=== PATIENT | female | born 1940 | race Two or more races ===

== ENCOUNTER 2024-09-26 09:28 | Inpatient (IN) | payer OTHER ==
[~2024-09-26] VITALS: Ht 157.5 cm; Wt 61.2 kg
[2024-09-26] MEDS ORDERED: TOPROL XL50 M1 (10:12)
[2024-09-26] MEDS ORDERED: AMLODIPINE-OLM1 EACH (10:13)
[2024-09-26] MEDS ORDERED: DAFLONEX-XL 11300 MG (10:14)
[2024-09-26] MEDS ORDERED: METFORMIN HCL500 M3 (10:14)
[2024-09-26] MEDS ORDERED: ADULT LOW DOSE81 M1 (10:14)
[2024-09-26] MEDS ORDERED: MORPHINE SULFATE 2 MG/ML CARTRIDGE IV ONE (12:45)
[2024-09-26 13:17] LABS: HEMATOCRIT 38.4 % (36.0-45.00); HEMOGLOBIN 12.7 g/dL (12.0-15.00); MEAN CELL VOLUME 86.3 fL (80.00-100.00); MEAN CORPUSCULAR HEMOGLOBIN 28.5 pg (27.00-32.0); PLATELET COUNT 205 K/uL (150-450); RED BLOOD COUNT 4.45 M/uL (4.00-6.00); RED CELL DISTRIBUTION WIDTH 14.2 % (11.5-14.5)
[2024-09-26 13:43] LABS: PH,URINE 6.5 (5.0-8.0); URINE APPEARANCE Turbid; URINE BILIRRUBIN Negative (NEGATIVE); URINE BLOOD Large; URINE COLOR Dark Yellow; URINE GLUCOSE Negative (NEGATIVE); URINE KETONE Negative (NEGATIVE); URINE LEUKOCYTE Large; URINE NITRATE Positive
[2024-09-26 13:46] LABS: URINE CAST 4.27 uL (0.0-1.40); URINE EPITHELIAL CELLS 18.2 uL (0.0-38.8); URINE RBC 458.5 uL (0.0-20.8)
[2024-09-26 13:58] LABS: URINE BACTERIA > 9821.5 uL (0.0-1933); URINE PROTEIN 100 (NEGATIVE)
[2024-09-26 13:59] LABS: URINE MUCUS MODERATE
[2024-09-26 14:00] LABS: COVID-19 AG NEGATIVE (NEGATIVE)
[2024-09-26] MEDS ORDERED: ACETAMINOPHEN 500 MG GEL..CAP PO ONE ×2 (14:00→14:12)
[2024-09-26 14:03] LABS: INFLUENZA A AG NEGATIVE (NEGATIVE)
[2024-09-26 14:37] LABS: ALBUMIN 3.4 gm/dL (3.4-5.0); BILIRUBIN TOTAL 1.09 mg/dL (0.3-1.2); CALCIUM 9.8 mg/dL (8.5-10.1); CREATININE SERUM 0.87 mg/dL (0.55-1.02); GFR 62.18; GLOBULINA 4.2 G/DL (2.4-3.5); POTASSIUM 4.19 mEq/L (3.5-5.1); TOTAL PROTEIN 7.6 gm/dL (6.4-8.2)
[2024-09-26] MEDS ORDERED: CEFTRIAXONE SODIUM 1,000 MG VIAL IV ONE (16:45)
[2024-09-26] MEDS ORDERED: CEFTRIAXONE SODIUM 1,000 MG VIAL ONE (17:33)
[2024-09-26] MEDS ORDERED: CEFEPIME HCL 2,000 MG in 0.9 % SODIUM CHLORIDE 100 ML IV SCH (18:04)
[2024-09-26] MEDS ORDERED: ACETAMINOPHEN 325 MG TABLET PO PRN (18:15)
[2024-09-26] MEDS ORDERED: 0.9 % SODIUM CHLORIDE 1,000 ML IV SCH (18:15)
[2024-09-26] MEDS ORDERED: MORPHINE SULFATE 2 MG/ML CARTRIDGE IV PRN (18:15)
[2024-09-26] MEDS ORDERED: INSULIN LISPRO 1,000 UNIT/10 ML UNITS SUBCUTANEO PRN ×2 (18:15→20:00)
[2024-09-26] MEDS ORDERED: DEXTROSE 50 % IN WATER 0.5 G/ML DISP.SYRIN IV PRN (18:15)
[2024-09-26] MEDS ORDERED: METOPROLOL TARTRATE 50 MG TABLET PO SCH (18:17)
[2024-09-26] MEDS ORDERED: ASPIRIN 81 MG TABLET.EC PO SCH (18:18)
[2024-09-26] MEDS ORDERED: AMLODIPINE BESYLATE 2.5 MG TABLET PO SCH (18:18)
[2024-09-26] MEDS ORDERED: SERTRALINE HCL 25 MG TABLET PO SCH (18:18)
[2024-09-26] MEDS ORDERED: CEFEPIME HCL 2,000 MG VIAL ONE (18:52)
[2024-09-26] MEDS ORDERED: TAMSULOSIN HCL 0.4 MG CAP PO SCH (19:53)
[2024-09-26] MEDS ORDERED: DEXTROSE 50 % IN WATER 0.5 G/ML VIAL IV PRN (20:00)
[2024-09-26] MEDS ORDERED: MEPERIDINE HCL/PF 25 MG/ML VIAL IV PRN (20:00)
[2024-09-26 20:07] VITALS: BP 90/60; O2SAT 97
[2024-09-26] MEDS ORDERED: TAMSULOSIN HCL 0.4 MG CAP PO ONE (20:13)
[2024-09-26 21:43] VITALS: BP 162/82; O2SAT 87
[2024-09-26] MEDS ORDERED: ONDANSETRON HCL 2 MG/ML VIAL IV PRN (21:45)
[2024-09-27 03:16] VITALS: BP 125/71; O2SAT 97
[2024-09-27 08:33] LABS: ALBUMIN 2.9 gm/dL (3.4-5.0); BILIRUBIN TOTAL 0.73 mg/dL (0.3-1.2); CREATININE SERUM 0.74 mg/dL (0.55-1.02); GFR 74.95; GLOBULINA 3.7 G/DL (2.4-3.5); POTASSIUM 4.34 mEq/L (3.5-5.1); TOTAL PROTEIN 6.6 gm/dL (6.4-8.2)
[2024-09-27 08:55] VITALS: BP 153/61; O2SAT 97
[2024-09-27] MEDS ORDERED: FAMOtidine 20 MG TABLET PO SCH (09:00)
[2024-09-27] MEDS ORDERED: ENOXAPARIN SODIUM 40 MG/0.4 ML SYRINGE SUBCUTANEO SCH (09:00)
[2024-09-27 14:20] LABS: ABG PH 7.468 (7.35-7.45); ABG pCO2 29.4 mmHg (35-45); BASE EXCESS -1.5 mmol/l; BICARBONATE 20.9 mmol/l (23-25); SaO2 95.4 %; Tco2 21.8 mmol/l
[2024-09-27 14:29] LABS: allen test SATISFACTORY; mode ROOM AIR; o2 21 %; puncture site RADIAL RIGHT
[2024-09-27 16:46] VITALS: BP 122/59
[2024-09-27] MEDS ORDERED: DOCUSATE SODIUM 100MG CAP PO SCH (17:00)
[2024-09-27] MEDS ORDERED: VALSARTAN 160 MG PO SCH (17:00)
[2024-09-28 03:26] VITALS: BP 102/50; O2SAT 93
[2024-09-28 08:10] VITALS: BP 111/52
[2024-09-28] MEDS ORDERED: GABAPENTIN 400 MG CAPSULE PO SCH (09:00)
[2024-09-28] MEDS ORDERED: HYDROCORTISONE 2.5% 30 GM TUBE TOP SCH (17:04)
[2024-09-28 17:57] VITALS: BP 114/57; O2SAT 100
[2024-09-28] MEDS ORDERED: CIPROFLOXACIN IN 5 % DEXTROSE 400 MG/200 ML PIGGYBAG IV SCH (21:00)
[2024-09-29] VITALS: BP 128/63; O2SAT 96
[2024-09-29 08:58] VITALS: BP 146/65; O2SAT 98
[2024-09-29 20:26] VITALS: BP 141/63
[2024-09-30 00:59] VITALS: BP 146/72; O2SAT 95
[2024-09-30 05:05] LABS: HEMATOCRIT 35.2 % (36.0-45.00); HEMOGLOBIN 11.9 g/dL (12.0-15.00); MEAN CELL VOLUME 84.3 fL (80.00-100.00); MEAN CORPUSCULAR HEMOGLOBIN 28.5 pg (27.00-32.0); MEAN CORPUSCULAR HGB CONC 33.8 g/dl (32.0-36.0); PLATELET COUNT 242 K/uL (150-450); RED BLOOD COUNT 4.17 M/uL (4.00-6.00); RED CELL DISTRIBUTION WIDTH 14.6 % (11.5-14.5)
[2024-09-30 05:26] LABS: ALBUMIN 2.3 gm/dL (3.4-5.0); BILIRUBIN TOTAL 0.26 mg/dL (0.3-1.2); CALCIUM 8.8 mg/dL (8.5-10.1); CREATININE SERUM 0.5 mg/dL (0.55-1.02); GFR 117.83; GLOBULINA 3.4 G/DL (2.4-3.5); MAGNESIUM 1.7 mg/dL (1.8-2.4); PHOSPHOROUS 3.1 mg/dL (2.5-4.9); POTASSIUM 4.04 mEq/L (3.5-5.1); TOTAL PROTEIN 5.7 gm/dL (6.4-8.2)
[2024-09-30 05:35] LABS: C-REACTIVE PROTEIN 5.05 MG/DL (0.00-0.29)
[2024-09-30 08:00] VITALS: BP 135/68; O2SAT 96
[2024-09-30 09:54] LABS: URINE APPEARANCE Clear; URINE BILIRRUBIN Negative (NEGATIVE); URINE BLOOD Moderate; URINE COLOR Yellow; URINE GLUCOSE Negative (NEGATIVE); URINE KETONE Negative (NEGATIVE); URINE LEUKOCYTE Small; URINE NITRATE Negative; URINE PROTEIN Negative (NEGATIVE); URINE UROBILINOGEN 0.2 E.U./dl
[2024-09-30 09:58] LABS: URINE EPITHELIAL CELLS 5.8 uL (0.0-38.8); URINE RBC 116.3 uL (0.0-20.8); URINE WBC 18.6 uL (0.0-23.2)
[2024-09-30 10:00] LABS: URINE CAST 0.14 uL (0.0-1.40)
[2024-09-30 18:05] VITALS: BP 153/71; O2SAT 96
[2024-10-01 02:50] VITALS: BP 147/69
[2024-10-01 09:03] VITALS: BP 170/72; O2SAT 96
[2024-10-01 17:45] VITALS: BP 160/64; O2SAT 96
[2024-10-01] MEDS ORDERED: GABAPENTIN 400 MG CAPSULE PO SCH (21:00)
[2024-10-02 00:11] VITALS: BP 158/70
[2024-10-02 09:25] VITALS: BP 146/73; O2SAT 98
== END 2024-10-02 15:02 | disposition home or self-care (01) | DRG 690 ==
LOC: ER 09:28 → MEDI 18:55
PROVIDERS: Emergency Medicine; General Practice; Internal Medicine Infectious Disease; ADMIT Internal Medicine; ATTEND Internal Medicine
PROC: BW21ZZZ Computerized Tomography (CT Scan) of Abdomen and Pelvis (ICD-10-PCS; principal; 2024-09-26)
PROC: BT43ZZZ Ultrasonography of Bilateral Kidneys (ICD-10-PCS; 2024-09-26)
DX: N13.6 Pyonephrosis (principal); N20.2 Calculus of kidney with calculus of ureter; E78.5 Hyperlipidemia, unspecified; I25.10 Atherosclerotic heart disease of native coronary artery without angina pectoris; I11.9 Hypertensive heart disease without heart failure; Z95.1 Presence of aortocoronary bypass graft; E11.9 Type 2 diabetes mellitus without complications; Z79.4 Long term (current) use of insulin; B96.20 Unspecified Escherichia coli [E. coli] as the cause of diseases classified elsewhere

== ENCOUNTER 2024-10-09 06:00 | Day surgery (SDC) | payer OTHER ==
[2024-10-06 10:41] VITALS: BP 100/60
[2024-10-06 10:59] LABS: INR 1.01; PARTIAL THROMBOPLASTIN TIME 26.7 SECONDS (22.0-34.0)
[~2024-10-09] VITALS: Ht 157.5 cm; Wt 61.2 kg
[~2024-10-09 06:00] MED LIST: ADULT LOW DOSE81 M1; AMLODIPINE-OLM1 EACH; DAFLONEX-XL 11300 MG; DIOVAN160 M1 PO; HORIZANT300 MG; LIPITOR40 M1 PO; METFORMIN HCL500 M3; TOPROL XL50 M1; ZOLOFT25 MG PO
[2024-10-09] MEDS ORDERED: GENTAMICIN SULFATE 40 MG/ML VIAL ONE (11:01)
[2024-10-09] MEDS ORDERED: CHLORHEXIDINE GLUCONATE 120 ML BOTTLE TOP ONE (13:50)
[2024-10-09] MEDS ORDERED: IOVERSOL 320 MG/ML - 50 ML VIAL IV ONE (13:52)
[2024-10-09] MEDS ORDERED: PHENAZOPYRIDINE HCL 100 MG TABLET PO ONE ×2 (15:15→19:40)
== END 2024-10-09 19:50 | disposition home or self-care (01) ==
LOC: CIR.AMB 06:00
PROVIDERS: ATTEND Urology
DX: N20.1 Calculus of ureter (principal)